=== PATIENT | male | born 1990 | race Caucasian/White ===

== ENCOUNTER 2017-12-25 16:31 | Emergency (ER) | payer OTHER, SELFPAY | END 2017-12-25 18:15 | disposition home or self-care (01) | LOC: M ED 16:31 | DX: N45.1 Epididymitis (principal); N50.3 Cyst of epididymis; G89.29 Other chronic pain; M54.5 Low back pain; G40.909 Epilepsy, unspecified, not intractable, without status epilepticus; Z79.899 Other long term (current) drug therapy | CPT/HCPCS: 76870 ==

== ENCOUNTER 2018-08-21 15:38 | Emergency (ER) | payer MEDICAID, OTHER ==
[2018-08-21] MEDS: IBUPROFEN 800 MG TAB PO (16:31)
[2018-08-21] MEDS: METHOCARBAMOL 500 MG TAB PO (16:31)
[2018-08-21] MEDS ORDERED: PERCOCET 5MG/325MG TAB As Ordered (17:39)
[2018-08-21] MEDS: PERCOCET 5MG/325MG TAB PO (17:45)
== END 2018-08-21 19:02 | disposition home or self-care (01) ==
LOC: M ED 15:38
DX: M54.42 Lumbago with sciatica, left side (principal); M62.830 Muscle spasm of back; Z79.899 Other long term (current) drug therapy
CPT/HCPCS: 99283

== ENCOUNTER → 2021-01-26 | Outpatient (CLI) | payer BC, OTHER ==
[~2021-01-26] MED LIST: CIPR-249 PO; DICL75TA PO; FLUO20CA22 PO; IBUP-1022 PO; KLON1TAB PO; METH-1165 PO; NAPR-837 PO; NORC1TAB8 PO; TRAM50TA2 PO; VIMP100T PO; XANA1TAB2 PO; XANA2TAB2 PO
[2021-01-26 12:42] LABS: AMPHETAMINES URINE REFLEX NEGATIVE (NEGATIVE); BARBITURATES URINE REFLEX NEGATIVE (NEGATIVE); BENZODIAZEPINES URINE REFLEX NEGATIVE (NEGATIVE); COCAINE METABOLITE URINE REFLE NEGATIVE (NEGATIVE); METHADONE URINE REFLEX NEGATIVE (NEGATIVE); OPIATES URINE REFLEX NEGATIVE (NEGATIVE); PHENCYCLIDINE URINE REFLEX NEGATIVE (NEGATIVE)
[2021-01-26 12:53] LABS: CANNABINOIDS URINE REFLEX PENDING CONFIRMATION (NEGATIVE)
[2021-01-30 16:17] LABS: Cannabinoid Positive (.); GC Carboxy THC 42 ng/mL (Cutoff=10)
== END ==
LOC: M LAB 11:43
PROVIDERS: ATTEND Family Medicine
DX: Z02.83 Encounter for blood-alcohol and blood-drug test (principal)
CPT/HCPCS: 36415; 80307; G0480

== ENCOUNTER 2021-02-23 14:03 | Emergency (ER) | payer BC, OTHER ==
[~2021-02-23] VITALS: Ht 180.3 cm; Wt 87.2 kg
[~2021-02-23 14:03] MED LIST changes: -FLUO20CA22 PO; -KLON1TAB PO
[2021-02-23] MEDS ORDERED: FLUO20CA22 PO (14:51)
[2021-02-23] MEDS ORDERED: clonazePAM 1 MG TAB PO ONE (15:50)
[2021-02-23] MEDS ORDERED: KLON1TAB PO (17:29)
[2021-02-23 17:47] VITALS: BP 148/92
== END 2021-02-23 17:48 | disposition home or self-care (01) ==
LOC: M ED 14:03
DX: F15.23 Other stimulant dependence with withdrawal (principal); F41.9 Anxiety disorder, unspecified; G40.909 Epilepsy, unspecified, not intractable, without status epilepticus; Z79.899 Other long term (current) drug therapy

== ENCOUNTER → 2021-02-26 | Outpatient (CLI) | payer MEDICAID ==
[~2021-02-26] MED LIST changes: +FLUO20CA22 PO; +KLON1TAB PO
== END ==
LOC: M OUTALCOH 08:45
PROVIDERS: ATTEND Psychiatry & Neurology Psychiatry
DX: F13.10 Sedative, hypnotic or anxiolytic abuse, uncomplicated (principal); F10.20 Alcohol dependence, uncomplicated

== ENCOUNTER → 2021-08-07 | Outpatient (CLI) | payer BC, MEDICAID ==
[2021-08-07 11:34] LABS: HEMATOCRIT 41.4 % (42.0-52.0); HEMOGLOBIN 13.9 g/dl (13.5-17.5); MEAN CORPUSCULAR HEMOGLOBIN 28.5 pg (27.0-33.0); MEAN CORPUSCULAR HGB CONC 33.6 g/dl (32.0-36.5); PLATELET COUNT, AUTOMATED 297 10^3/uL (150-450); RED BLOOD COUNT 4.87 10^6/uL (4.30-6.10); WHITE BLOOD COUNT 6.9 10^3/uL (4.0-10.0)
[2021-08-07 12:12] LABS: ALBUMIN 4.5 GM/DL (3.2-5.2); ALT/SGPT 48 U/L (12-78); BILIRUBIN,TOTAL 0.4 MG/DL (0.2-1.0); BLOOD UREA NITROGEN 10 MG/DL (7-18); CALCIUM LEVEL 10.1 MG/DL (8.5-10.1); CARBON DIOXIDE LEVEL 29 MEQ/L (21-32); CHLORIDE LEVEL 103 MEQ/L (98-107); CREATININE FOR GFR 0.86 MG/DL (0.70-1.30); GLOMERULAR FILTRATION RATE > 60.0 (>60); GLUCOSE, FASTING 85 MG/DL (70-100); POTASSIUM SERUM 4.4 MEQ/L (3.5-5.1); SODIUM LEVEL 138 MEQ/L (136-145); TOTAL PROTEIN 7.6 GM/DL (6.4-8.2)
[2021-08-07 12:32] LABS: HEPATITIS B SURFACE ANTIGEN NEGATIVE (NEGATIVE)
[2021-08-07 13:00] LABS: HEPATITIS C VIRUS ABY INDEX < 0.0 INDEX (<0.8); HIV 1&2 SCREEN CENTAUR NEGATIVE (NEGATIVE)
[2021-08-07 13:03] LABS: GC DNA AMPLIFICATION NEGATIVE (NEGATIVE)
--- NOTE | 2021-08-08 07:13 | ECGEPIP ---
[facility] Test Date: 2021-08-07 Pat Name: COONR DIAS Department: Room: - Gender: Male [employer] Instructor: MARICHUY : 1990 Requested By: Florentino Burgess Order Number: [id number] Reading MD: Ry Morales Measurements Intervals [place] Rate: 73 P: 56 MN: 158 QRS: 27 QRSD: 78 T: 46 QT: 368 QTc: 405 Interpretive Statements Normal sinus rhythm Normal EKG Compared to prior tracing of 10/12/2016, there is less evidence of early repolarizaton Electronically Signed on 08-08-2021 7:13:08 EDT by Ry Morales
== END ==
LOC: M LAB 10:43
PROVIDERS: ATTEND Family Medicine
DX: F11.20 Opioid dependence, uncomplicated (principal)

== ENCOUNTER 2021-09-17 17:09 | Emergency (ER) | payer BC ==
[2021-09-17 17:16] VITALS: BP 122/83
[2021-09-18] MEDS ORDERED: ZOLO100T (07:15)
[2021-09-18] MEDS ORDERED: METH-1164 PO (17:53)
[2021-09-18] MEDS ORDERED: KETO10TAB PO (18:02)
== END 2021-09-17 22:38 | disposition left against medical advice (07) ==
LOC: M ED 17:09
DX: Z53.29 Procedure and treatment not carried out because of patient's decision for other reasons (principal)

== ENCOUNTER 2021-09-18 07:01 | Emergency (ER) | payer BC ==
[~2021-09-18] VITALS: Ht 180.3 cm; Wt 90.9 kg
[2021-09-18 07:05] VITALS: BP 121/85
[2021-09-18] MEDS ORDERED: ZOLO100T (07:15)
[2021-09-18] MEDS ORDERED: METH-1164 PO (17:53)
[2021-09-18] MEDS ORDERED: KETO10TAB PO (18:02)
== END 2021-09-18 07:36 | disposition left against medical advice (07) ==
LOC: M ED 07:01
DX: Z53.29 Procedure and treatment not carried out because of patient's decision for other reasons (principal)

== ENCOUNTER 2021-09-18 13:17 | Emergency (ER) | payer BC, OTHER ==
[~2021-09-18] VITALS: Ht 180.3 cm; Wt 90.9 kg
[~2021-09-18 13:17] MED LIST changes: +ZOLO100T
[2021-09-18] MEDS ORDERED: methocarbamoL 750 MG TAB PO ONE (16:10)
[2021-09-18] MEDS ORDERED: KETOROLAC 30 MG/ML 1ML VIAL IM ONE (16:10)
[2021-09-18] MEDS ORDERED: LIDOCAINE 5% (LIDODERM) PATCH TD ONE (16:40)
[2021-09-18 17:43] VITALS: BP 135/84
[2021-09-18] MEDS ORDERED: METH-1164 PO (17:53)
[2021-09-18] MEDS ORDERED: KETO10TAB PO (18:02)
[2021-09-18] MEDS ORDERED: **NOTE PATIENT COMMENT** MISC XX SCH (21:00)
== END 2021-09-18 18:15 | disposition home or self-care (01) ==
LOC: M ED 13:17
DX: S00.83XA Contusion of other part of head, initial encounter (principal); S46.911A Strain of unspecified muscle, fascia and tendon at shoulder and upper arm level, right arm, initial encounter; S46.912A Strain of unspecified muscle, fascia and tendon at shoulder and upper arm level, left arm, initial encounter; W22.8XXA Striking against or struck by other objects, initial encounter; Y92.89 Other specified places as the place of occurrence of the external cause; Y99.0 Civilian activity done for income or pay; M54.2 Cervicalgia; G40.909 Epilepsy, unspecified, not intractable, without status epilepticus; Z79.899 Other long term (current) drug therapy
CPT/HCPCS: 96372; 99283; J1885

== ENCOUNTER → 2023-12-04 | Outpatient (CLI) | payer OTHER ==
[~2023-12-04] MED LIST changes: +KETO10TAB PO; +METH-1164 PO
[2023-12-04 16:57] LABS: HEMATOCRIT 41.3 % (42.0-52.0); HEMOGLOBIN 13.7 g/dl (13.5-17.5); MEAN CORPUSCULAR HEMOGLOBIN 28.7 pg (27.0-33.0); MEAN CORPUSCULAR HGB CONC 33.2 g/dl (32.0-36.5); MEAN CORPUSCULAR VOLUME 86.6 fl (80.0-96.0); PLATELET COUNT, AUTOMATED 326 10^3/uL (150-450); RED BLOOD COUNT 4.77 10^6/uL (4.30-6.10)
[2023-12-04 17:51] LABS: HIV 1&2 SCREEN NEGATIVE (NEGATIVE)
[2023-12-04 17:59] LABS: ALBUMIN 4.3 G/DL (3.2-5.2); ALKALINE PHOSPHATASE 79 U/L (46-116); ALT/SGPT 23 U/L (7.0-40); AST/SGOT 22 U/L (<34); BILIRUBIN,TOTAL 0.2 MG/DL (0.3-1.2); BLOOD UREA NITROGEN 8 MG/DL (9-23); CALCIUM LEVEL 9.3 MG/DL (8.5-10.1); CARBON DIOXIDE LEVEL 28 MMOL/L (20-31); CHLORIDE LEVEL 104 MMOL/L (98-107); CREATININE FOR GFR 0.78 MG/DL (0.70-1.30); GLOMERULAR FILTRATION RATE > 60.0 (>60); GLUCOSE, FASTING 130 MG/DL (60-100); HEPATITIS C VIRUS ABY INDEX < 0.02 INDEX (<0.8); POTASSIUM SERUM 4.3 MMOL/L (3.5-5.1); SODIUM LEVEL 138 MMOL/L (136-145)
[2023-12-04 18:42] LABS: GC DNA AMPLIFICATION NEGATIVE (NEGATIVE)
== END ==
LOC: M WUC 12:47
PROVIDERS: ATTEND Family Medicine
DX: F11.20 Opioid dependence, uncomplicated (principal)

== ENCOUNTER 2023-12-27 13:11 | Emergency (ER) | payer BC, OTHER ==
[~2023-12-27] VITALS: Ht 180.3 cm; Wt 81.5 kg
[~2023-12-27 13:11] MED LIST changes: -KLON1TAB PO; +KLON1TAB13 PO
[2023-12-27 13:52] LABS: BASO % 0.2 % (0.0-1.0); EOS % 0.1 % (0.0-3.0); HEMATOCRIT 41.8 % (42.0-52.0); HEMOGLOBIN 13.9 g/dl (13.5-17.5); LYMPH # 1.2 10^3/uL (1.5-5.0); LYMPH % 9.4 % (24.0-44.0); MEAN CORPUSCULAR HEMOGLOBIN 28.8 pg (27.0-33.0); MEAN CORPUSCULAR HGB CONC 33.3 g/dl (32.0-36.5); MEAN CORPUSCULAR VOLUME 86.7 fl (80.0-96.0); MONO # 0.7 10^3/uL (0.0-0.8); MONO % 5.1 % (2.0-8.0); NEUTROPHILS # 10.7 10^3/uL (1.5-8.5); NEUTROPHILS % 84.8 % (36.0-66.0); PLATELET COUNT, AUTOMATED 336 10^3/uL (150-450); RED BLOOD COUNT 4.82 10^6/uL (4.30-6.10); WHITE BLOOD COUNT 12.6 10^3/uL (4.0-10.0)
[2023-12-27] MEDS: NS 1,000 ML IV ONE (14:04)
[2023-12-27 14:14] LABS: ETHYL ALCOHOL (ETHANOL) 0.003 % (0.000-0.010)
[2023-12-27 14:16] LABS: ALBUMIN 4.2 G/DL (3.2-5.2); ALKALINE PHOSPHATASE 75 U/L (46-116); ALT/SGPT 14 U/L (7.0-40); AST/SGOT 13 U/L (<34); BILIRUBIN,DIRECT < 0.1 MG/DL (<0.4); BILIRUBIN,TOTAL 0.2 MG/DL (0.3-1.2); BLOOD UREA NITROGEN 10 MG/DL (9-23); CALCIUM LEVEL 8.8 MG/DL (8.5-10.1); CARBON DIOXIDE LEVEL 28 MMOL/L (20-31); CHLORIDE LEVEL 105 MMOL/L (98-107); CREATININE FOR GFR 0.77 MG/DL (0.70-1.30); GLOMERULAR FILTRATION RATE > 60.0 (>60); GLUCOSE, FASTING 98 MG/DL (60-100); POTASSIUM SERUM 4.2 MMOL/L (3.5-5.1); SODIUM LEVEL 138 MMOL/L (136-145); TOTAL PROTEIN 7.3 G/DL (5.7-8.2)
[2023-12-27 14:27] LABS: RSV AMPLIFICATION NEGATIVE (NEGATIVE)
[2023-12-27] MEDS: levETIRAcetam INJection 1,000 MG in D5W 100 ML IV ONE (14:47)
[2023-12-27 16:15] VITALS: BP 112/78; TEMP 98.8; O2SAT 96
[2023-12-27] MEDS ORDERED: KEPP1TAB2 PO (16:17)
== END 2023-12-27 16:36 | disposition home or self-care (01) ==
LOC: EDBD 13:11 → M ED 13:11
DX: G40.909 Epilepsy, unspecified, not intractable, without status epilepticus (principal); Z79.899 Other long term (current) drug therapy
CPT/HCPCS: 70450; 80047; 80048; 80076; 82077; 83605; 85025; 87631; 93041; 94760; 96361; 96365; 96366; 99285; J1953

== ENCOUNTER 2023-12-29 19:14 | Emergency (ER) | payer BC, OTHER ==
[~2023-12-29] VITALS: Ht 180.3 cm; Wt 88.0 kg
[~2023-12-29 19:14] MED LIST changes: +KEPP1TAB2 PO
[2023-12-29 19:24] VITALS: TEMP 98.9
[2023-12-29 19:48] LABS: IONIZED CALCIUM 4.7 MG/DL (4.5-5.3)
[2023-12-29 19:55] LABS: BASO % 0.6 % (0.0-1.0); EOS # 0.1 10^3/uL (0.0-0.5); EOS % 1.2 % (0.0-3.0); HEMATOCRIT 39.8 % (42.0-52.0); HEMOGLOBIN 13.4 g/dl (13.5-17.5); LYMPH # 2.8 10^3/uL (1.5-5.0); LYMPH % 38.6 % (24.0-44.0); MEAN CORPUSCULAR HEMOGLOBIN 28.6 pg (27.0-33.0); MEAN CORPUSCULAR HGB CONC 33.7 g/dl (32.0-36.5); MONO # 0.5 10^3/uL (0.0-0.8); MONO % 6.9 % (2.0-8.0); NEUTROPHILS # 3.8 10^3/uL (1.5-8.5); NEUTROPHILS % 52.4 % (36.0-66.0); PLATELET COUNT, AUTOMATED 318 10^3/uL (150-450); RED BLOOD COUNT 4.68 10^6/uL (4.30-6.10); WHITE BLOOD COUNT 7.3 10^3/uL (4.0-10.0)
[2023-12-29] MEDS: NS 1,000 ML IV ONE (20:19)
[2023-12-29 20:23] LABS: ETHYL ALCOHOL (ETHANOL) 0.005 % (0.000-0.010)
[2023-12-29 20:25] LABS: ALBUMIN 4.3 G/DL (3.2-5.2); ALKALINE PHOSPHATASE 80 U/L (46-116); ALT/SGPT 14 U/L (7.0-40); AST/SGOT 15 U/L (<34); BILIRUBIN,DIRECT 0.1 MG/DL (<0.4); BILIRUBIN,TOTAL 0.4 MG/DL (0.3-1.2); BLOOD UREA NITROGEN 6 MG/DL (9-23); CALCIUM LEVEL 8.8 MG/DL (8.5-10.1); CARBON DIOXIDE LEVEL 27 MMOL/L (20-31); CHLORIDE LEVEL 109 MMOL/L (98-107); CREATININE FOR GFR 0.84 MG/DL (0.70-1.30); GLOMERULAR FILTRATION RATE > 60.0 (>60); GLUCOSE, FASTING 89 MG/DL (60-100); MAGNESIUM LEVEL 1.8 MG/DL (1.8-2.4); PHOSPHORUS LEVEL 3.6 MG/DL (2.5-4.9); POTASSIUM SERUM 3.8 MMOL/L (3.5-5.1); SODIUM LEVEL 142 MMOL/L (136-145); TOTAL PROTEIN 7.2 G/DL (5.7-8.2)
[2023-12-29] MEDS ORDERED: PROHANCE 279.3MG/ML 15ML VIAL As Ordered ONE (21:01)
[2023-12-29] MEDS ORDERED: PROHANCE 279.3MG/ML 5ML VIAL As Ordered ONE (21:01)
[2023-12-29] MEDS: levETIRAcetam INJection 1,500 MG in D5W 100 ML IV ONE (22:35)
[2023-12-29 23:16] VITALS: BP 134/84; O2SAT 96
== END 2023-12-29 23:27 | disposition left against medical advice (07) ==
LOC: M ED 19:14
DX: G40.909 Epilepsy, unspecified, not intractable, without status epilepticus (principal); F41.9 Anxiety disorder, unspecified; F12.10 Cannabis abuse, uncomplicated; Z79.899 Other long term (current) drug therapy; Z53.9 Procedure and treatment not carried out, unspecified reason
CPT/HCPCS: 70450; 70553; 80048; 80076; 80180; 82077; 82140; 82330; 83605; 83735; 84100; 85025; 87635; 93041; 94760; 96361; 96365; 99285; A9576; J1953

== ENCOUNTER → 2024-01-15 | Outpatient (REF) | payer OTHER ==
[2024-01-15 17:39] LABS: BASO # 0.1 10^3/uL (0.0-0.2); BASO % 0.9 % (0.0-1.0); EOS # 0.2 10^3/uL (0.0-0.5); EOS % 2.9 % (0.0-3.0); HEMATOCRIT 44.9 % (42.0-52.0); HEMOGLOBIN 14.4 g/dl (13.5-17.5); LYMPH # 2.2 10^3/uL (1.5-5.0); MEAN CORPUSCULAR HEMOGLOBIN 28.2 pg (27.0-33.0); MEAN CORPUSCULAR HGB CONC 32.1 g/dl (32.0-36.5); MEAN CORPUSCULAR VOLUME 87.9 fl (80.0-96.0); MONO # 0.7 10^3/uL (0.0-0.8); MONO % 10.3 % (2.0-8.0); NEUTROPHILS # 3.4 10^3/uL (1.5-8.5); NEUTROPHILS % 51.7 % (36.0-66.0); PLATELET COUNT, AUTOMATED 273 10^3/uL (150-450); RED BLOOD COUNT 5.11 10^6/uL (4.30-6.10); WHITE BLOOD COUNT 6.5 10^3/uL (4.0-10.0)
[2024-01-15 18:07] LABS: ALBUMIN 4.3 G/DL (3.2-5.2); ALKALINE PHOSPHATASE 107 U/L (46-116); ALT/SGPT 55 U/L (7.0-40); AST/SGOT 49 U/L (<34); BILIRUBIN,TOTAL 0.2 MG/DL (0.3-1.2); BLOOD UREA NITROGEN 6 MG/DL (9-23); CALCIUM LEVEL 9.6 MG/DL (8.5-10.1); CARBON DIOXIDE LEVEL 29 MMOL/L (20-31); CHLORIDE LEVEL 105 MMOL/L (98-107); CREATININE FOR GFR 0.69 MG/DL (0.70-1.30); GLOMERULAR FILTRATION RATE > 60.0 (>60); GLUCOSE, FASTING 90 MG/DL (60-100); POTASSIUM SERUM 4.7 MMOL/L (3.5-5.1); SODIUM LEVEL 140 MMOL/L (136-145); TOTAL PROTEIN 7.3 G/DL (5.7-8.2)
== END ==
LOC: M LAB REF 16:33
PROVIDERS: ATTEND Family Medicine Addiction Medicine
DX: G40.909 Epilepsy, unspecified, not intractable, without status epilepticus (principal)

== ENCOUNTER → 2024-01-27 | Outpatient (REF) | payer OTHER ==
[2024-01-27 13:41] LABS: ALKALINE PHOSPHATASE 98 U/L (46-116); ALT/SGPT 34 U/L (7.0-40); AST/SGOT 25 U/L (<34); BILIRUBIN,TOTAL 0.4 MG/DL (0.3-1.2); BLOOD UREA NITROGEN 12 MG/DL (9-23); CALCIUM LEVEL 9.8 MG/DL (8.5-10.1); CARBON DIOXIDE LEVEL 30 MMOL/L (20-31); CHLORIDE LEVEL 104 MMOL/L (98-107); CREATININE FOR GFR 0.77 MG/DL (0.70-1.30); GLOMERULAR FILTRATION RATE > 60.0 (>60); GLUCOSE, FASTING 113 MG/DL (60-100); POTASSIUM SERUM 4.7 MMOL/L (3.5-5.1); SODIUM LEVEL 139 MMOL/L (136-145); TOTAL PROTEIN 6.9 G/DL (5.7-8.2)
[2024-01-27 14:24] LABS: HEPATITIS C VIRUS ABY INDEX < 0.02 INDEX (<0.8)
== END ==
LOC: M LAB REF 12:05
PROVIDERS: ATTEND Family Medicine Addiction Medicine
DX: R74.01 Elevation of levels of liver transaminase levels (principal)

== ENCOUNTER 2024-11-11 09:59 | Emergency (ER) | payer OTHER ==
[~2024-11-11] VITALS: Ht 180.3 cm; Wt 81.8 kg
[~2024-11-11 09:59] MED LIST changes: +FLUO-365 PO; -FLUO20CA22 PO
[2024-11-11] MEDS ORDERED: AMPH1CAP16 (10:13)
[2024-11-11] MEDS ORDERED: CLON0.5T2 (10:13)
[2024-11-11] MEDS: diazePAM 5MG TABLET PO ONE (11:58)
[2024-11-11] MEDS: ACETAMINOPHEN 500 MG TAB PO ONE (11:58)
[2024-11-11] MEDS: LIDOCAINE 5% (LIDODERM) PATCH TD ONE (11:59)
[2024-11-11] MEDS ORDERED: CYCL5TAB4 PO (12:52)
[2024-11-11] MEDS ORDERED: LIDO5DIS41 TD (12:52)
[2024-11-11] MEDS ORDERED: MEDR4PAK PO (12:52)
[2024-11-11 13:33] VITALS: BP 143/88; TEMP 98.3; O2SAT 99
== END 2024-11-11 13:42 | disposition home or self-care (01) ==
LOC: M ED 09:59 → EDBD 09:59 → M ED 13:42
DX: M51.360 Other intervertebral disc degeneration, lumbar region with discogenic back pain only (principal); M25.551 Pain in right hip; W19.XXXA Unspecified fall, initial encounter; Y92.9 Unspecified place or not applicable; Y93.02 Activity, running; Y99.0 Civilian activity done for income or pay; R56.9 Unspecified convulsions; Q05.8 Sacral spina bifida without hydrocephalus

== ENCOUNTER 2025-06-15 12:36 | Observation (INO) | payer OTHER ==
[~2025-06-15] VITALS: Ht 180.3 cm; Wt 92.5 kg
[~2025-06-15 12:36] MED LIST changes: +AMPH1CAP16; +CLON0.5T2; +CYCL5TAB4 PO; -IBUP-1022 PO; +IBUP600T42 PO; +LIDO1ADH93 TD; +MEDR4PAK PO
[2025-06-15] MEDS ORDERED: NALOXONE INJ 0.4 MG/1 ML VIAL As Ordered ONE (12:49)
[2025-06-15] MEDS: NALOXONE INJ 0.4 MG/1 ML VIAL IV ONE (12:53)
[2025-06-15 13:04] LABS: BASO # 0.1 10^3/uL (0.0-0.2); BASO % 0.5 % (0.0-1.0); EOS # 0.0 10^3/uL (0.0-0.5); EOS % 0.1 % (0.0-3.0); LYMPH # 1.3 10^3/uL (1.5-5.0); LYMPH % 12.3 % (24.0-44.0); MONO # 0.6 10^3/uL (0.0-0.8); MONO % 5.2 % (2.0-8.0); NEUTROPHILS # 8.8 10^3/uL (1.5-8.5); NEUTROPHILS % 81.4 % (36.0-66.0); PLATELET COUNT, AUTOMATED 316 10^3/uL (150-450)
[2025-06-15 13:18] LABS: KETONE, URINE AUTO RFX NEGATIVE (NEGATIVE); LEUKOCYTE ESTERASE UR AUTO RFX NEGATIVE (NEGATIVE); NITRITE, URINE AUTO RFX NEGATIVE (NEGATIVE); RBC, URINE AUTO RFX 3 /HPF (0-3); SQUAM EPITHELIAL CELL UR AURFX 0 /HPF (0-6); WBC, URINE AUTO RFX 1 /HPF (0-3)
[2025-06-15] MEDS: NALOXONE 2 MG/2 ML SYRINGE IV STA (13:23)
[2025-06-15 13:36] LABS: ETHYL ALCOHOL (ETHANOL) 0.005 % (0.000-0.010)
[2025-06-15 13:37] LABS: CPK CREATINE PHOSPHOKINASE 141 U/L (46-171)
[2025-06-15 13:38] LABS: ALT/SGPT 16 U/L (7.0-40); AST/SGOT 21 U/L (<34); CALCIUM LEVEL 9.9 MG/DL (8.5-10.1); CARBON DIOXIDE LEVEL 27 MMOL/L (20-31); CHLORIDE LEVEL 101 MMOL/L (98-107); CREATININE FOR GFR 0.93 MG/DL (0.70-1.30); GLOMERULAR FILTRATION RATE > 90.0 (>60); POTASSIUM SERUM 4.3 MMOL/L (3.5-5.1); SALICYLATE LEVEL < 3.0 MG/DL (<30); SODIUM LEVEL 140 MMOL/L (136-145)
[2025-06-15 13:47] LABS: AMPHETAMINES LEVEL URINE NEGATIVE (NEGATIVE)
[2025-06-15 13:48] LABS: BARBITURATES URINE NEGATIVE (NEGATIVE); BENZODIAZEPINES URINE NEGATIVE (NEGATIVE); COCAINE METABOLITE URINE NEGATIVE (NEGATIVE); OPIATES URINE NEGATIVE (NEGATIVE); PHENCYCLIDINE URINE NEGATIVE (NEGATIVE)
[2025-06-15 13:52] LABS: CANNABINOIDS URINE POSITIVE (NEGATIVE); METHADONE URINE POSITIVE (NEGATIVE)
[2025-06-15 15:08] LABS: CK-MB VALUE MASS 3.0 NG/ML (<3.6)
[2025-06-15 15:17] LABS: CPK CREATINE PHOSPHOKINASE 137.0 U/L (46-171); MB/CK RELATIVE INDEX 2.18 (< OR =4)
[2025-06-15] MEDS ORDERED: CLON1TAB8 PO (15:56)
[2025-06-15] MEDS ORDERED: AMPH1CAP15 PO (15:56)
[2025-06-15] MEDS ORDERED: LEVE750T5 PO (15:56)
[2025-06-15] MEDS ORDERED: HOME MED LIST COMPLETE! XX SCH (16:00)
[2025-06-15 17:04] VITALS: BP 144/101; TEMP 97.6; O2SAT 97
[2025-06-15 18:15] LABS: PLATELET COUNT, AUTOMATED 318 10^3/uL (150-450)
[2025-06-15] MEDS: LR 1,000 ML IV SCH (18:21)
[2025-06-15 18:43] LABS: CK-MB VALUE MASS 4.2 NG/ML (<3.6)
[2025-06-15 18:44] LABS: CPK CREATINE PHOSPHOKINASE 130.0 U/L (46-171); MB/CK RELATIVE INDEX 3.23 (< OR =4)
[2025-06-15 18:48] LABS: FREE T4 1.37 NG/DL (0.89-1.76); PROLACTIN 2.05 NG/ML (2.1-17.7)
[2025-06-15 19:54] VITALS: BP 128/88; TEMP 97.7; O2SAT 98
[2025-06-15] MEDS: amLODIPine 5 MG TAB PO SCH (20:23)
[2025-06-15] MEDS: levETIRAcetam INJection 750 MG in D5W 100 ML IV SCH (20:24)
[2025-06-15] MEDS: HEPARIN SOD 5000 UNITS/ML 1 ML VIAL/SYRINGE SQ SCH (20:24)
[2025-06-16 00:43] LABS: CK-MB VALUE MASS 3.5 NG/ML (<3.6); CPK CREATINE PHOSPHOKINASE 107.0 U/L (46-171); MB/CK RELATIVE INDEX 3.27 (< OR =4)
[2025-06-16 06:44] LABS: CK-MB VALUE MASS 2.8 NG/ML (<3.6)
[2025-06-16 06:45] LABS: CPK CREATINE PHOSPHOKINASE 107.0 U/L (46-171); MB/CK RELATIVE INDEX 2.61 (< OR =4)
[2025-06-16 06:46] LABS: THYROXINE (T4) 5.8 UG/DL (4.5-10.9)
[2025-06-16 06:50] LABS: ALT/SGPT 13 U/L (7.0-40); AST/SGOT 18 U/L (<34); CALCIUM LEVEL 9.6 MG/DL (8.5-10.1); CARBON DIOXIDE LEVEL 25 MMOL/L (20-31); CHLORIDE LEVEL 104 MMOL/L (98-107); CREATININE FOR GFR 0.96 MG/DL (0.70-1.30); GLOMERULAR FILTRATION RATE > 90.0 (>60); POTASSIUM SERUM 3.9 MMOL/L (3.5-5.1); SODIUM LEVEL 141 MMOL/L (136-145); T UPTAKE 40.2 % (22.5-37.0)
[2025-06-16 12:00] VITALS: BP 130/62; TEMP 97.5; O2SAT 98
[2025-06-16] MEDS ORDERED: METH-1177 PO (14:35)
[2025-06-16] MEDS: METHADONE 10 MG TAB PO SCH (15:29)
[2025-06-16 19:31] VITALS: BP 184/114; TEMP 97.5; O2SAT 99
[2025-06-16] MEDS ORDERED: NALOXONE INJ 0.4 MG/1 ML VIAL IV PRN (19:50)
[2025-06-16 20:00] LABS: CALCIUM LEVEL 8.8 MG/DL (8.5-10.1); CARBON DIOXIDE LEVEL 26 MMOL/L (20-31); CHLORIDE LEVEL 103 MMOL/L (98-107); CREATININE FOR GFR 0.95 MG/DL (0.70-1.30); GLOMERULAR FILTRATION RATE > 90.0 (>60); POTASSIUM SERUM 3.6 MMOL/L (3.5-5.1); SODIUM LEVEL 139 MMOL/L (136-145)
[2025-06-16] MEDS: NALOXONE INJ 0.4 MG/1 ML VIAL IV STA (20:01)
[2025-06-16 20:08] VITALS: BP 180/106; TEMP 97.7; O2SAT 98
[2025-06-16] MEDS: MAG SULF 1GM/100ML (MAG RUN) 1 GM in IV 1 EA IV ONE (20:15)
[2025-06-16 20:27] LABS: PHOSPHORUS LEVEL 3.9 MG/DL (2.5-4.9)
[2025-06-16 21:07] VITALS: BP 183/110; TEMP 97.8; O2SAT 100
[2025-06-16 21:36] LABS: ERYTHROCYTE SEDIMENTATION RATE 5 mm/hr (0-15)
[2025-06-16 21:41] VITALS: BP 178/120
[2025-06-16 21:43] LABS: BASO # 0.0 10^3/uL (0.0-0.2); BASO % 0.4 % (0.0-1.0); EOS # 0.2 10^3/uL (0.0-0.5); EOS % 1.8 % (0.0-3.0); LYMPH # 2.5 10^3/uL (1.5-5.0); LYMPH % 26.2 % (24.0-44.0); MONO # 1.0 10^3/uL (0.0-0.8); MONO % 10.1 % (2.0-8.0); NEUTROPHILS # 5.9 10^3/uL (1.5-8.5); NEUTROPHILS % 61.2 % (36.0-66.0); PLATELET COUNT, AUTOMATED 282 10^3/uL (150-450)
[2025-06-16] MEDS: POTASSIUM CHLORIDE 10MEQ SR TABLET PO ONE (21:53)
[2025-06-16 21:55] LABS: C REACTIVE PROTEIN QUANTITATIV < 0.50 MG/DL (<1.0); PHOSPHORUS LEVEL 3.6 MG/DL (2.5-4.9)
[2025-06-16 22:05] LABS: AMPHETAMINES LEVEL URINE NEGATIVE (NEGATIVE); BARBITURATES URINE NEGATIVE (NEGATIVE); BENZODIAZEPINES URINE NEGATIVE (NEGATIVE); COCAINE METABOLITE URINE NEGATIVE (NEGATIVE); OPIATES URINE NEGATIVE (NEGATIVE); PHENCYCLIDINE URINE NEGATIVE (NEGATIVE)
[2025-06-16] MEDS: clonazePAM 1 MG TAB PO SCH (22:08)
[2025-06-16 22:10] LABS: CANNABINOIDS URINE POSITIVE (NEGATIVE); METHADONE URINE POSITIVE (NEGATIVE)
[2025-06-17] VITALS (7 sets, daily range): BP systolic 102–180; BP diastolic 63–110; TEMP 97–97.4; O2SAT 97–100
[2025-06-17 00:44] LABS: CALCIUM LEVEL 8.8 MG/DL (8.5-10.1); CARBON DIOXIDE LEVEL 29 MMOL/L (20-31); CHLORIDE LEVEL 104 MMOL/L (98-107); CREATININE FOR GFR 0.97 MG/DL (0.70-1.30); GLOMERULAR FILTRATION RATE > 90.0 (>60); MAGNESIUM LEVEL 1.8 MG/DL (1.8-2.4); POTASSIUM SERUM 3.5 MMOL/L (3.5-5.1); SODIUM LEVEL 141 MMOL/L (136-145)
[2025-06-17] MEDS: POTASSIUM CHLORIDE 10MEQ SR TABLET PO ONE ×2 (00:54→08:06)
[2025-06-17] MEDS: NICOTINE 21 MG/24 HR 1 EA TRANSDERMAL TD PRN (01:10)
[2025-06-17 05:57] LABS: BASO # 0.1 10^3/uL (0.0-0.2); BASO % 0.5 % (0.0-1.0); EOS # 0.2 10^3/uL (0.0-0.5); EOS % 1.9 % (0.0-3.0); LYMPH # 2.5 10^3/uL (1.5-5.0); LYMPH % 23.7 % (24.0-44.0); MONO # 0.9 10^3/uL (0.0-0.8); MONO % 9.0 % (2.0-8.0); NEUTROPHILS # 6.7 10^3/uL (1.5-8.5); NEUTROPHILS % 64.7 % (36.0-66.0); PLATELET COUNT, AUTOMATED 258 10^3/uL (150-450)
[2025-06-17 06:29] LABS: ALT/SGPT 15 U/L (7.0-40); AST/SGOT 19 U/L (<34); CALCIUM LEVEL 9.0 MG/DL (8.5-10.1); CARBON DIOXIDE LEVEL 28 MMOL/L (20-31); CHLORIDE LEVEL 103 MMOL/L (98-107); CREATININE FOR GFR 0.96 MG/DL (0.70-1.30); GLOMERULAR FILTRATION RATE > 90.0 (>60); MAGNESIUM LEVEL 1.7 MG/DL (1.8-2.4); PHOSPHORUS LEVEL 3.1 MG/DL (2.5-4.9); POTASSIUM SERUM 3.5 MMOL/L (3.5-5.1); SODIUM LEVEL 141 MMOL/L (136-145)
[2025-06-17] MEDS: MAG SULF 1GM/100ML (MAG RUN) 1 GM in IV 1 EA IV SCH (08:08)
[2025-06-17 11:41] LABS: CALCIUM LEVEL 8.9 MG/DL (8.5-10.1); CARBON DIOXIDE LEVEL 27 MMOL/L (20-31); CHLORIDE LEVEL 105 MMOL/L (98-107); CREATININE FOR GFR 0.90 MG/DL (0.70-1.30); GLOMERULAR FILTRATION RATE > 90.0 (>60); MAGNESIUM LEVEL 2.3 MG/DL (1.8-2.4); PHOSPHORUS LEVEL 2.6 MG/DL (2.5-4.9); POTASSIUM SERUM 4.2 MMOL/L (3.5-5.1); SODIUM LEVEL 140 MMOL/L (136-145)
[2025-06-17] MEDS: METHADONE 10 MG TAB PO ONE (14:33)
[2025-06-17 17:45] LABS: CALCIUM LEVEL 8.8 MG/DL (8.5-10.1); CARBON DIOXIDE LEVEL 26 MMOL/L (20-31); CHLORIDE LEVEL 105 MMOL/L (98-107); CREATININE FOR GFR 0.90 MG/DL (0.70-1.30); GLOMERULAR FILTRATION RATE > 90.0 (>60); MAGNESIUM LEVEL 2.0 MG/DL (1.8-2.4); POTASSIUM SERUM 4.3 MMOL/L (3.5-5.1); SODIUM LEVEL 140 MMOL/L (136-145)
== END 2025-06-17 20:29 ==
LOC: M ED 12:36 → M ED INP 12:37 → M MSPAV 16:52 → M PCU 06-16 21:04
PROVIDERS: ADMIT General Practice; ATTEND Student in an Organized Health Care Education/Training Program
DX: R41.82 Altered mental status, unspecified (principal); G93.40 Encephalopathy, unspecified; G40.909 Epilepsy, unspecified, not intractable, without status epilepticus; R79.89 Other specified abnormal findings of blood chemistry; F12.90 Cannabis use, unspecified, uncomplicated; F15.90 Other stimulant use, unspecified, uncomplicated; F11.920 Opioid use, unspecified with intoxication, uncomplicated; R00.1 Bradycardia, unspecified; F41.9 Anxiety disorder, unspecified; F32.A Depression, unspecified; I10 Essential (primary) hypertension; R94.31 Abnormal electrocardiogram [ECG] [EKG]; Z81.8 Family history of other mental and behavioral disorders; Z91.148 Patient's other noncompliance with medication regimen for other reason; F17.290 Nicotine dependence, other tobacco product, uncomplicated; Z79.899 Other long term (current) drug therapy

== ENCOUNTER 2025-06-17 17:44 | Inpatient (IN) | payer OTHER ==
[~2025-06-17] VITALS: Ht 180.3 cm; Wt 92.5 kg
[~2025-06-17 17:44] MED LIST changes: +AMPH1CAP15 PO; +CLON1TAB8 PO; +LEVE750T5 PO; +METH-1177 PO
[2025-06-17] MEDS ORDERED: MAALOX 30 ML SUSP *UDC PO PRN (18:40)
[2025-06-17] MEDS ORDERED: IBUPROFEN 400 MG TAB PO PRN (18:40)
[2025-06-17] MEDS ORDERED: MOM 30 ML SUSPENSION UDC PO PRN (18:40)
[2025-06-17] MEDS ORDERED: traZODone 50 MG TAB PO PRN (18:40)
[2025-06-17 20:41] VITALS: BP 139/85; TEMP 99.4; O2SAT 98
[2025-06-17] MEDS ORDERED: HOME MED LIST COMPLETE! XX SCH (21:55)
[2025-06-17] MEDS: clonazePAM 1 MG TAB PO SCH (22:00)
[2025-06-17] MEDS: ACETAMINOPHEN 325 MG TAB PO PRN (22:01)
[2025-06-17 22:08] VITALS: BP 139/85; TEMP 99.4; O2SAT 98
[2025-06-18 06:31] VITALS: BP 142/100; TEMP 98.9; O2SAT 100
[2025-06-18] MEDS: METHADONE 10 MG TAB PO SCH (08:17)
[2025-06-18] MEDS: METHADONE 10 MG TAB PO ONE (12:55)
[2025-06-18] MEDS: ONDANSETRON 4MG ORAL DISINTEGRATING TAB PO PRN (15:16)
[2025-06-18] MEDS: NICOTINE 21 MG/24 HR 1 EA TRANSDERMAL TD SCH (15:59)
[2025-06-18 17:04] VITALS: BP 148/86; TEMP 98.1; O2SAT 100
[2025-06-19 06:34] VITALS: BP 128/65; TEMP 98.6; O2SAT 98
[2025-06-19] MEDS: METHADONE 10 MG TAB PO SCH (08:23)
[2025-06-19] MEDS: NICOTINE POLACRILEX 2 MG GUM PO PRN (08:57)
[2025-06-19 15:32] VITALS: BP 127/83; TEMP 98.6; O2SAT 99
[2025-06-20 06:28] VITALS: BP 132/78; TEMP 99.1; O2SAT 100
[2025-06-20 14:48] VITALS: BP 133/85; TEMP 98.6; O2SAT 100
[2025-06-21 06:00] VITALS: BP 148/91; TEMP 97.5; O2SAT 100
[2025-06-21] MEDS ORDERED: BUSP10TA PO (13:01)
== END 2025-06-21 14:05 | disposition home or self-care (01) | DRG 756 ==
LOC: M PSY 20:35
PROVIDERS: ADMIT General Practice; ATTEND Psychiatry & Neurology Psychiatry
DX: F41.1 Generalized anxiety disorder (principal); F11.288 Opioid dependence with other opioid-induced disorder; F32.9 Major depressive disorder, single episode, unspecified; G40.909 Epilepsy, unspecified, not intractable, without status epilepticus; F15.188 Other stimulant abuse with other stimulant-induced disorder; F12.188 Cannabis abuse with other cannabis-induced disorder; F17.290 Nicotine dependence, other tobacco product, uncomplicated; F11.24 Opioid dependence with opioid-induced mood disorder